=== PATIENT | male | born 1990 | race Two or more races ===

== ENCOUNTER 2017-07-30 18:19 | Inpatient (IN) | payer OTHER ==
[~2017-07-30] VITALS: Ht 180.3 cm; Wt 93.9 kg
[2017-07-30] MEDS ORDERED: KETOROLAC TROMETH 30 MG/ML 1ML VIAL IV ONE (19:45)
[2017-07-30] MEDS ORDERED: SODIUM CHLORIDE 0.9% 1,000 ML IV ONE (19:45)
[2017-07-30 22:43] LABS: Albumin 4.2 g/dL (3.4-5.0); BUN/Creatinine Ratio 15.2; Basophils # (auto) 0.1 uL; Basophils % (auto) 0.6 % (0.0-2.0); Bilirubin, Total 0.4 mg/dL (0.2-1.0); CONDITION Y; Calcium 8.8 mg/dL (8.5-10.1); Eosinophils # (auto) 0.1 uL; Eosinophils % (auto) 1.2 % (0.0-7.0); Hematocrit 42.5 % (41.0-53.0); Hemoglobin 14.2 g/dL (13.5-17.5); Lymphocytes # (auto) 2.8 uL; Lymphocytes % (auto) 25.3 % (10.0-50.0); Mean Corpuscular Hemoglobin 31.3 pg (28.0-32.0); Mean Corpuscular Hgb Conc. 33.3 g/dL (32.0-36.0); Mean Platelet Volume 7.6 fL (7.4-10.4); Monocytes # (auto) 0.7 uL; Neutrophils # (auto) 7.3 uL; Neutrophils % (auto) 66.9 % (37.0-80.0); Platelet Count (auto) 333 10^3/uL (140-450); Potassium 4.1 mmol/L (3.5-5.1); Red Cell Distribution Width 13.1 % (11.6-16.0); Total Protein 7.8 g/dL (6.4-8.2)
[2017-07-30 23:21] LABS: Urine Bilirubin Negative (Negative); Urine Blood 3+ /uL (Negative); Urine Color Yellow (Yellow); Urine Glucose Normal (Normal); Urine Ketone Negative (Negative); Urine Mucus MANY (None Seen); Urine Nitrite Negative (Negative); Urine RBC 529 /hpf (0 - 3); Urine Urobilinogen Normal (Negative); Urine pH 6.5 (5.0-8.0)
[2017-07-31] MEDS ORDERED: cefTRIAXone 1GM/50ML D5W 50 ML IV ONE ×2 (00:30→00:44)
[2017-07-31] MEDS ORDERED: SODIUM CHLORIDE 0.9% 1,000 ML IV SCH (01:15)
[2017-07-31] MEDS ORDERED: ONDANSETRON HCL 4 MG/2 ML VIAL IV PRN (01:15)
[2017-07-31] MEDS ORDERED: HYDROcodone-ACET 5/325MG TAB PO PRN (01:15)
[2017-07-31] MEDS ORDERED: ACETAMINOPHEN 500 MG TAB PO PRN (01:15)
[2017-07-31] MEDS ORDERED: MORPHINE SULF INJ 2 MG/ML SYRINGE 1ML IV PRN (01:15)
[2017-07-31 03:14] VITALS: BP 122/80
[2017-07-31] MEDS ORDERED: LACTCAP35 OR (03:46)
[2017-07-31 05:22] VITALS: BP 124/80
[2017-07-31 09:00] VITALS: BP 124/70
[2017-07-31 12:47] VITALS: BP 124/70
[2017-07-31 14:00] VITALS: BP 120/76
[2017-07-31] MEDS ORDERED: cefTRIAXone 1GM/50ML D5W 50 ML IV SCH (22:00)
== END 2017-07-31 14:00 | disposition home or self-care (01) | DRG 694 ==
LOC: ER 18:22 → EDSEX 18:22 → OVERFLOW 18:23 → WEST WING 07-31 02:43
PROVIDERS: ADMIT Nurse Practitioner Family; ATTEND Internal Medicine
DX: N13.2 Hydronephrosis with renal and ureteral calculous obstruction (principal); D64.9 Anemia, unspecified; F17.210 Nicotine dependence, cigarettes, uncomplicated; D72.829 Elevated white blood cell count, unspecified; Z80.1 Family history of malignant neoplasm of trachea, bronchus and lung; Z82.49 Family history of ischemic heart disease and other diseases of the circulatory system; Z80.49 Family history of malignant neoplasm of other genital organs; Z91.013 Allergy to seafood
CPT/HCPCS: 36415; 74176; 80053; 81001; 85025; 96361; 96365; 96375; J0696; J1885

== ENCOUNTER 2023-07-26 14:44 | Emergency (ER) | payer MEDICAID, OTHER ==
[~2023-07-26] VITALS: Ht 180.3 cm; Wt 91.7 kg
[~2023-07-26 14:44] MED LIST: LACTCAP35 OR
[2023-07-26 15:55] VITALS: BP 137/88; PULSE 83; RESP 17; TEMP 97.8; O2SAT 100
== END 2023-07-26 15:57 | disposition home or self-care (01) ==
LOC: ER 14:44
DX: S29.011A Strain of muscle and tendon of front wall of thorax, initial encounter (principal); Z79.899 Other long term (current) drug therapy; Z91.013 Allergy to seafood; X50.1XXA Overexertion from prolonged static or awkward postures, initial encounter; Y93.89 Activity, other specified; Y92.89 Other specified places as the place of occurrence of the external cause; Y99.8 Other external cause status
CPT/HCPCS: 71046; 93005